=== PATIENT | male | born 1975 | race Hispanic/Latino ===

== ENCOUNTER 2019-10-02 07:22 | Emergency (ER) | payer OTHER, SELFPAY ==
[2019-10-02] MEDS ORDERED: KETOROLAC 30 MG/ML INJ ONE (09:06)
[2019-10-02] MEDS ORDERED: NA CHLORIDE 0.9% 1,000 ML ONE (09:07)
[2019-10-02] MEDS ORDERED: TETANUS & DIPHTHERIA TOX,ADULT 0.5 ML VIAL ONE (09:07)
[2019-10-02] MEDS ORDERED: CLINDAMYCIN 600MG/D5W 600 MG/50 ML BAG IV ONE (09:07)
--- NOTE | 2019-10-02 09:47 | RAD REPORT ---
EXAM DESCRIPTION: US - Extremity Nonvascular Limited - 10/02/2019 8:55 am CLINICAL HISTORY: Arm swelling and pain COMPARISON: None FINDINGS: Diffuse edema is present within the subcutaneous tissues of the left forearm. A fluid-filled abscess is not visualized. IMPRESSION: Left forearm cellulitis
[2019-10-02 10:24] LABS: Absolute Lymphocytes (CBC) 1.5 K/uL (0.7-4.9); Basophils % 0.5 % (0-1.3); Hematocrit 49.7 % (39.6-49.0); Lymphocytes % 16.4 % (15.3-44.8); MPV 10.8 fL (7.6-11.3); RBC Red Blood Cell Count 5.24 M/uL (4.33-5.43)
[2019-10-02 10:37] LABS: BUN Blood Urea Nitrogen 8 mg/dL (7-18); Bicarbonate 29 mmol/L (21-32); Glucose Level 93 mg/dL (74-106); Potassium 4.2 mmol/L (3.5-5.1); Sodium Level 140 mmol/L (136-145)
--- NOTE | 2019-10-02 11:20 | EDPHYS ---
Physician Documentation [facility] Name: Barrett Diggs III Age: 43 yrs Sex: Male : 1975 Arrival Date: 10/02/2019 Time: 07:25 Bed 14 Private MD: ED Physician Arash Smith HPI: 10/01 08:54 This 43 yrs old Male presents to ER via Ambulatory with complaints of Spider snw Bite. 08:54 The patient or guardian complains of a bite, by an insect, pain, that is acute, snw swelling, tenderness. The complaints affect the left bicep. Context: The problem was sustained at work, resulted from "spider bite". Onset: The symptoms/episode began/occurred suddenly, yesterday. Associated signs and symptoms: Pertinent positives: erythema, swelling, warmth, of the left antecubital area. Severity of symptoms: At their worst the symptoms were moderate, severe. The patient has not experienced similar symptoms in the past. The patient has not recently seen a physician. Tetanus immunization status unknown. Historical: - Allergies: 07:50 No Known Allergies; ss - Home Meds: 07:50 None [Active]; ss - PMHx: 07:50 None; ss - PSHx: 07:50 None; ss - Immunization history:: Adult Immunizations up to date. - Social history:: Smoking status: Patient denies any tobacco usage or history of. ROS: 08:52 Constitutional: Negative for fever, chills, and weight loss, Eyes: Negative for injury, snw pain, redness, and discharge, ENT: Negative for injury, pain, and discharge, Neck: Negative for injury, pain, and swelling, Cardiovascular: Negative for chest pain, palpitations, and edema, Respiratory: Negative for shortness of breath, cough, wheezing, and pleuritic chest pain, Abdomen/GI: Negative for abdominal pain, nausea, vomiting, diarrhea, and constipation, Back: Negative for injury and pain, : Negative for injury, bleeding, discharge, and swelling, MS/Extremity: Negative for injury and deformity, Neuro: Negative for headache, weakness, numbness, tingling, and seizure, Psych: Negative for depression, anxiety, suicide ideation, homicidal ideation, and hallucinations. 08:52 Skin: Positive for cellulitis, erythema, swelling, of the left bicep, "spider bite". Exam: 08:52 Constitutional: This is a well developed, well nourished patient who is awake, alert, snw and in no acute distress. Head/Face: Normocephalic, atraumatic. Eyes: Pupils equal round and reactive to light, extra-ocular motions intact. Lids and lashes normal. Conjunctiva and sclera are non-icteric and not injected. Cornea within normal limits. Periorbital areas with no swelling, redness, or edema. ENT: Nares patent. No nasal discharge, no septal abnormalities noted. Tympanic membranes are normal and external auditory canals are clear. Oropharynx with no redness, swelling, or masses, exudates, or evidence of obstruction, uvula midline. Mucous membranes moist. Neck: Trachea midline, no thyromegaly or masses palpated, and no cervical lymphadenopathy. Supple, full range of motion without nuchal rigidity, or vertebral point tenderness. No Meningismus. Chest/axilla: Normal chest wall appearance and motion. Nontender with no deformity. No lesions are appreciated. Cardiovascular: Regular rate and rhythm with a normal S1 and S2. No gallops, murmurs, or rubs. Normal PMI, no JVD. No pulse deficits. Respiratory: Lungs have equal breath sounds bilaterally, clear to auscultation and percussion. No rales, rhonchi or wheezes noted. No increased work of breathing, no retractions or nasal flaring. Abdomen/GI: Soft, non-tender, with normal bowel sounds. No distension or tympany. No guarding or rebound. No evidence of tenderness throughout. Back: No spinal tenderness. No costovertebral tenderness. Full range of motion. MS/ Extremity: Pulses equal, no cyanosis. Neurovascular intact. Full, normal range of motion. Neuro: Awake and alert, GCS 15, oriented to person, place, time, and situation. Cranial nerves II-XII grossly intact. Motor strength 5/5 in all extremities. Sensory grossly intact. Cerebellar exam normal. Normal gait. Psych: Awake, alert, with orientation to person, place and time. Behavior, mood, and affect are within normal limits. 08:52 Skin: Appearance: normal except for affected area, cellulitis, that is severe, well demarcated, on the left bicep. Vital Signs: 07:49 BP 154 / 96; Pulse 86; Resp 15; Temp 97.7(O); Pulse Ox 100% ; Weight 77.11 kg; Height 5 ss ft. 6 in. (167.64 cm); Pain 3/10; 10:24 BP 132 / 94; Pulse 75; Resp 20; Pulse Ox 100% on R/A; jr10 11:03 BP 132 / 94; Pulse 78; Resp 20; Pulse Ox 100% on R/A; jr10 07:49 Body Mass Index 27.44 (77.11 kg, 167.64 cm) ss MDM: 08:[address] [facility] 11:19 Data reviewed: vital signs, nurses notes. Data interpreted: Pulse oximetry: on room air snw is 100 %. Interpretation: normal. Counseling: I had a detailed discussion with the patient and/or guardian regarding: the historical points, exam findings, and any diagnostic results supporting the discharge/admit diagnosis, the presence of at least one elevated blood pressure reading (>120/80) during this emergency department visit, lab results, radiology results, the need for outpatient follow up, to return to the emergency department if symptoms worsen or persist or if there are any questions or concerns that arise at home. Response to treatment: the patient's symptoms have mildly improved after treatment. Special discussion: Based on the history and exam findings, there is no indication for further emergent testing or inpatient evaluation. I discussed with the patient/guardian the need to see the primary care provider for further evaluation of the symptoms. 10/01 08:35 Order name: Blood Culture Adult (2) snw 10/01 08:35 Order name: CBC with Diff; Complete Time: 10:34 snw 10/01 08:35 Order name: Chem 7; Complete Time: 10:44 snw 10/01 08:35 Order name: US Extrmty Nonvasular Limited; Complete Time: 09:48 snw Administered Medications: 09:15 Drug: NS 0.9% 1000 ml Route: IV; Rate: 1 bolus; Site: right antecubital; jr10 09:15 Drug: TORadol 30 mg Route: IVP; Site: right antecubital; jr10 09:59 Follow up: Response: No adverse reaction jr10 09:30 Drug: Clindamycin 600 mg Route: IVPB; Infused Over: 30 mins; Site: right antecubital; jr10 09:59 Follow up: Response: No adverse reaction; IV Status: Completed infusion 09:30 Drug: Tetanus-Diphtheria Toxoid Adult 0.5 ml {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 Exp: jr03/23/2021. Lot #: [id number]. } Route: IM; Site: right deltoid; 09:59 Follow up: Response: No adverse reaction 09:59 Not Given (Patient Refused): Commerce 5 mg-325 mg 1 tabs PO once; RASS on ADMIN: Combtv4, jr10 Very Agttd3, Agttd2, Rstlss1, AlertClm0, Drwsy-1, Lt Sdtn-2, Mod Sdtn-3, Dp Sdtn-4, UnArsble-5 Disposition: 19:45 Co-signature as Attending Physician, Arash Smith MD I agree with the assessment and [facility] plan of care. Disposition: 10/02/19 11:20 Discharged to Home. Impression: Cellulitis of left upper limb. - Condition is Stable. - Discharge Instructions: Cellulitis, Adult, VIS, Diphtheria, Tetanus, and Pertussis (DTaP) - CDC, Heat Therapy. - Prescriptions for Clindamycin HCl 300 mg Oral Capsule - take 1 capsule by ORAL route every 6 hours for 10 days; 40 capsule. Diclofenac Sodium 75 mg Oral Tablet Sustained Release - take 1 tablet by ORAL route 2 times per day; 30 tablet. - Work release form, Medication Reconciliation Form, Thank You Letter, Antibiotic Education, Prescription Opioid Use form. - Follow up: Emergency Department; When: As needed; Reason: Worsening of condition, Repeat Beta-HCG (48 Hours). Follow up: Private Physician; When: 2 - 3 days; Reason: Recheck today's complaints, Continuance of care, Re-evaluation by your physician. Signatures: Dispatcher [employer] Arash Arriaga MD MD cha Waters, Shelly, MANAGER ETL-C MANAGER ETL-Kristel Gamble RN RN ss Rivera, Jessica, RN RN jr10 Corrections: (The following items were deleted from the chart) 11:49 11:20 10/02/2019 11:20 Discharged to Home. Impression: Cellulitis of left upper limb. jr10 Condition is Stable. Forms are Medication Reconciliation Form, Thank You Letter, Antibiotic Education, Prescription Opioid Use. Follow up: Emergency Department; When: As needed; Reason: Worsening of condition, Repeat Beta-HCG (48 Hours). Follow up: Private Physician; When: 2 - 3 days; Reason: Recheck today's complaints, Continuance of care, Re-evaluation by your physician. blanka
--- NOTE | 2019-10-02 11:20 | ER ---
Nurse's Notes [facility] Name: Barrett Diggs III Age: 43 yrs Sex: Male : 1975 Arrival Date: 10/02/2019 Time: 07:25 Bed 14 Private MD: Diagnosis: Cellulitis of left upper limb Presentation: 10/01 07:49 Chief complaint: Patient states: redness and swelling to L upper arm. Pt states, "I ss think I got bit by something. I felt it was itchy 2 days ago, and now it's like this since yesterday.". Coronavirus screen: Client denies travel out of the [place] in the last 14 days. At this time, the client does not indicate any symptoms associated with coronavirus-19. Ebola Screen: Patient denies exposure to infectious person. Patient denies travel to an Ebola-affected area in the 21 days before illness onset. Initial Sepsis Screen: Does the patient meet any 2 criteria? No. Patient's initial sepsis screen is negative. Does the patient have a suspected source of infection? No. Patient's initial sepsis screen is negative. Risk Assessment: Do you want to hurt yourself or someone else? Patient reports no desire to harm self or others. Onset of symptoms was September 30, 2019. 07:49 Method Of Arrival: Ambulatory ss 07:49 Acuity: BRADLEY 3 ss Historical: - Allergies: 07:50 No Known Allergies; ss - Home Meds: 07:50 None [Active]; ss - PMHx: 07:50 None; ss - PSHx: 07:50 None; ss - Immunization history:: Adult Immunizations up to date. - Social history:: Smoking status: Patient denies any tobacco usage or history of. Screenin:58 Abuse screen: Denies threats or abuse. Denies injuries from another. Nutritional ss screening: No deficits noted. Tuberculosis screening: Never had TB. Fall Risk None identified. Assessment: 07:58 General: Appears in no apparent distress. comfortable, Behavior is calm, cooperative, ss Denies fever, feeling ill, fatigue, chills. Pain: Complains of pain in left bicep Pain currently is 4 out of 10 on a pain scale. Quality of pain is described as pressure, Pain began 1 day ago. Is continuous, Aggravated by increased activity, repositioning. Neuro: Level of Consciousness is awake, alert, obeys commands, Oriented to person, place, time, situation, Denies blurred vision dizziness. Cardiovascular: Pulses are palpable in right radial artery and left radial artery. Respiratory: Airway is patent Respiratory effort is even, unlabored, Respiratory pattern is regular, symmetrical. GI: Patient currently denies abdominal pain, diarrhea, nausea, vomiting. : No signs and/or symptoms were reported regarding the genitourinary system. EENT: Oral mucosa is moist. Throat is clear. Derm: Skin is dry, Skin is redness noted to L bicep area Skin temperature is warm. Musculoskeletal: Circulation, motion, and sensation intact. Range of motion: intact in all extremities, Swelling present in left bicep and left antecubital area. 09:00 Reassessment: Patient and/or family updated on plan of care and expected duration. Pain jr10 level reassessed. Patient is alert, oriented x 3, equal unlabored respirations, skin warm/dry/pink. Patient states feeling better. 11:00 Reassessment: Patient and/or family updated on plan of care and expected duration. Pain jr10 level reassessed. Patient is alert, oriented x 3, equal unlabored respirations, skin warm/dry/pink. Patient states feeling better. Vital Signs: 07:49 BP 154 / 96; Pulse 86; Resp 15; Temp 97.7(O); Pulse Ox 100% ; Weight 77.11 kg; Height 5 ss ft. 6 in. (167.64 cm); Pain 3/10; 10:24 BP 132 / 94; Pulse 75; Resp 20; Pulse Ox 100% on R/A; jr10 11:03 BP 132 / 94; Pulse 78; Resp 20; Pulse Ox 100% on R/A; jr10 07:49 Body Mass Index 27.44 (77.11 kg, 167.64 cm) ED Course: 07:25 Patient arrived in ED. ds1 07:50 Triage completed. ss 07:50 Arm band placed on right wrist. ss 07:56 Elo Alvarez, RN is Primary Nurse. jr10 07:58 Patient has correct armband on for positive identification. Bed in low position. Call light in reach. 07:59 [facility]C [facility] snw 07:59 Dominick Cid MD is Attending Physician. snw 08:26 Attending Physician role handed off by Dominick Cid MD [facility] 08:26 Arash Smith MD is Attending Physician. pamela 08:26 Staci Bedoya FNP-C [facility] snw 08:49 US Extrmty Nonvasular Limited In Process Unspecified. EDMS 09:10 Inserted saline lock: 20 gauge in right antecubital area, using aseptic technique. IV jr10 is patent, is intact, with good blood return, Flushed. 10:01 No provider procedures requiring assistance completed. jr10 11:48 IV discontinued, intact, bleeding controlled, No redness/swelling at site. Pressure jr10 dressing applied. 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 Exp: jr10 03/23/2021. Lot #: [id number]. } Route: IM; Site: right deltoid; 09:59 Follow up: Response: No adverse reaction jr10 09:59 Not Given (Patient Refused): Chama 5 mg-325 mg 1 tabs PO once; RASS on ADMIN: Combtv4, jr10 Very Agttd3, Agttd2, Rstlss1, AlertClm0, Drwsy-1, Lt Sdtn-2, Mod Sdtn-3, Dp Sdtn-4, UnArsble-5 Outcome: 11:20 Discharge ordered by . snw 11:49 Discharged to home ambulatory. jr10 11:49 Condition: improved 11:49 Discharge instructions given to patient, Instructed on discharge instructions, follow up and referral plans. Demonstrated understanding of instructions, follow-up care, medications, Prescriptions given X 2. 11:49 Patient left the ED. jr10 Signatures: Dispatcher [employer] EDMS Arash Smith MD MD pamela Bedoya, Staci, MAILROOM ASSISTANT-C MAILROOM ASSISTANT-Csnw Malu Mae ds1 Kristel Dempsey, RN RN ss Elo Alvarez RN RN jr10
[2019-10-06 12:49] VITALS: TEMP 97.7; O2SAT 100
[2019-10-06 12:50] VITALS: BP 132/94
== END 2019-10-02 11:49 | disposition home or self-care (01) ==
LOC: ER 07:22
DX: L03.114 Cellulitis of left upper limb (principal); Z23 Encounter for immunization
CPT/HCPCS: 36415; 76882; 80048; 85025; 87040; 90471; 90714; 96365; 96375; 99284; J7030